=== PATIENT | female | born 1990 | race Caucasian/White ===

== ENCOUNTER 2019-03-06 12:45 | Emergency (ER) | payer OTHER ==
[2019-03-06] MEDS ORDERED: SODIUM CHLORIDE 0.9% 500 ML 500 ML IV ONE (13:25)
--- NOTE | 2019-03-06 13:44 | ED ---
Female Urogenital HPI - General Chief complaint: Vaginal Bleeding Stated complaint: 12 weeks and spotting Time Seen by Provider: 03/06/19 13:24 Source: patient Mode of arrival: ambulatory Limitations: no limitations - History of Present Illness Initial comments: A2 female with last menstrual period November 2018 presented today for chief complaint of positive test abdominal cramping and vaginal bleeding x 2 hours. Patient states she is appointment scheduled with Dr. Paieg on 03/21/2019. Patient states that today she experienced lower abdominal cramping feeling like a light period. She states she has had mild vaginal bleeding. She has any radiation of the pain, severe abdominal pain nausea vomiting diarrhea fever chills or night sweats. Patient was concerned she was miscarrying present to the emergency department for evaluation. Patient does have history of previous right-sided oophrectomy due to ovarian torsion. Patient denies the symptoms being similar. Remaining review of system negative. Upon arrival patient appears well no signs of acute distress. Last Menstrual Period: 12/10/18 - Related Data Home Medications Medication Instructions Recorded Confirmed Acetaminophen Tab [Tylenol Tab] 325 mg PO Q4H PRN 03/06/19 03/06/19 Hcc-Atxc-Nalmy Acid 1 cap PO DAILY 03/06/19 03/06/19 [-U Capsule (formulary)] Allergies Allergy/AdvReac Type Severity Reaction Status Date / Time amoxicillin Allergy Rash/Hives Verified 03/06/19 13:57 cefaclor [From Ceclor] Allergy Rash/Hives Verified 03/06/19 13:57 Review of Systems ROS Statement: Those systems with pertinent positive or pertinent negative responses have been documented in the HPI. ROS Other: All systems not noted in ROS Statement are negative. Past Medical History Past Medical History: No Reported History Additional Past Medical History / Comment(s): ovarian cysts, miscarriage x 2 History of Any Multi-Drug Resistant Organisms: None Reported Past Surgical History: Section Past Psychological History: No Psychological Hx Reported Smoking Status: Never smoker Past Alcohol Use History: None Reported Past Drug Use History: None Reported General Exam - General Exam Comments Initial Comments: General: The patient is awake and alert, in no distress, and does not appear acutely ill. Eye: +3 mm pupils are equal, round and reactive to light, extra-ocular movements are intact. No nystagmus. There is normal conjunctiva bilaterally. No signs of icterus. Ears, nose, mouth and throat: There are moist mucous membranes and no oral lesions. Neck: The neck is supple, there is no tenderness or JVD. Cardiovascular: There is a regular rate and rhythm. No murmur, rub or gallop is appreciated. Respiratory: Lungs are clear to auscultation, respirations are non-labored, breath sounds are equal. No wheezes, stridor, rales, or rhonchi. Gastrointestinal: Soft, non-distended, non-tender abdomen without masses or organomegaly noted. There is no rebound or guarding present. Pelvic Exam: No external lesions. Vaginal mucosa elevated pink. Small amount of blood in vaginal vault no discharge. No adnexal or cervical motion tenderness. Musculoskeletal: Normal ROM, no tenderness. Strength 5/5. Sensation intact. Radial pulses equal bilaterally 2+. Neurological: A&O x 3. CN II-XII intact, There are no obvious motor or sensory deficits. Coordination appears grossly intact. Speech is normal. Skin: Skin is warm and dry and no rashes or lesions are noted. Psychiatric: Cooperative, appropriate mood & affect, normal judgment. Limitations: no limitations Course Vital Signs 03/06/19 03/06/19 13:14 15:54 Temperature 98.5 F 98 F Pulse Rate 91 Pulse Rate [ 87 Pulse Oximetery ] Respiratory 16 18 Rate Blood Pressure 126/81 Blood Pressure 121/86 [Left Arm] O2 Sat by Pulse 99 98 Oximetry Medical Decision Making - Medical Decision Making Well-appearing 28-year-old female 12 weeks presenting for vaginal bleeding. Mild cramping. Ultrasound revealed a viable 12 week 6 day with HR within acceptable limit. + blood type. No rhogam indicated. HgB and VS stable. Patient appears well. Pelvic exam revealed small amount of blood otherwise unremarkable. After discussing case with him provider Dr. Soria. The patient is stable for discharge, with outpatient f/u. Return parameters as well as importance of follow-up are discussed at length the patient who verbalizes understanding. Patient has scheduled appointment with Dr. Paige 03/21/19. - Lab Data Result diagrams: 03/06/19 14:12 03/06/19 14:38 Lab Results 03/06/19 03/06/19 03/06/19 Range/Units 14:12 14:12 14:12 WBC 6.7 (3.8-10.6) k/uL RBC 4.11 (3.80-5.40) m/uL Hgb 12.5 (11.4-16.0) gm/dL Hct 36.3 (34.0-46.0) % MCV 88.3 (80.0-100.0) fL MCH 30.5 (25.0-35.0) pg MCHC 34.5 (31.0-37.0) g/dL RDW 13.1 (11.5-15.5) % Plt Count 221 (150-450) k/uL Neutrophils % 78 % Lymphocytes % 15 % Monocytes % 4 % Eosinophils % 1 % Basophils % 0 % Neutrophils # 5.3 (1.3-7.7) k/uL Lymphocytes # 1.0 (1.0-4.8) k/uL Monocytes # 0.3 (0-1.0) k/uL Eosinophils # 0.1 (0-0.7) k/uL Basophils # 0.0 (0-0.2) k/uL Sodium (137-145) mmol/L Potassium (3.5-5.1) mmol/L Chloride (98-107) mmol/L Carbon Dioxide (22-30) mmol/L Anion Gap mmol/L BUN (7-17) mg/dL Creatinine (0.52-1.04) mg/dL Est GFR (CKD-EPI)AfAm (>60 ml/min/1.73 sqM) Est GFR (CKD-EPI)NonAf (>60 ml/min/1.73 sqM) Glucose (74-99) mg/dL Calcium (8.4-10.2) mg/dL Total Bilirubin (0.2-1.3) mg/dL AST (14-36) U/L ALT (9-52) U/L Alkaline Phosphatase (38-126) U/L Total Protein (6.3-8.2) g/dL Albumin (3.5-5.0) g/dL Urine Color Colorless Urine Appearance Clear (Clear) Urine pH 6.5 (5.0-8.0) Ur Specific [place] 1.001 (1.001-1.035) Urine Protein Negative (Negative) Urine Glucose (UA) Negative (Negative) Urine Ketones Negative (Negative) Urine Blood Moderate H (Negative) Urine Nitrite Negative (Negative) Urine Bilirubin Negative (Negative) Urine Urobilinogen <2.0 (<2.0) mg/dL Ur Leukocyte Esterase Negative (Negative) Urine WBC 1 (0-5) /hpf Ur Squamous Epith Cells 1 (0-4) /hpf Urine HCG, Qual Detected (Not Detectd) Blood Type Blood Type Recheck 03/06/19 03/06/19 Range/Units 14:38 14:38 WBC (3.8-10.6) k/uL RBC (3.80-5.40) m/uL Hgb (11.4-16.0) gm/dL Hct (34.0-46.0) % MCV (80.0-100.0) fL MCH (25.0-35.0) pg MCHC (31.0-37.0) g/dL RDW (11.5-15.5) % Plt Count (150-450) k/uL Neutrophils % % Lymphocytes % % Monocytes % % Eosinophils % % Basophils % % Neutrophils # (1.3-7.7) k/uL Lymphocytes # (1.0-4.8) k/uL Monocytes # (0-1.0) k/uL Eosinophils # (0-0.7) k/uL Basophils # (0-0.2) k/uL Sodium 137 (137-145) mmol/L Potassium 3.6 (3.5-5.1) mmol/L Chloride 110 H (98-107) mmol/L Carbon Dioxide 20 L (22-30) mmol/L Anion Gap 7 mmol/L BUN 5 L (7-17) mg/dL Creatinine 0.46 L (0.52-1.04) mg/dL Est GFR (CKD-EPI)AfAm >90 (>60 ml/min/1.73 sqM) Est GFR (CKD-EPI)NonAf >90 (>60 ml/min/1.73 sqM) Glucose 81 (74-99) mg/dL Calcium 8.7 (8.4-10.2) mg/dL Total Bilirubin 0.3 (0.2-1.3) mg/dL AST 15 (14-36) U/L ALT 21 (9-52) U/L Alkaline Phosphatase 48 (38-126) U/L Total Protein 6.5 (6.3-8.2) g/dL Albumin 3.5 (3.5-5.0) g/dL Urine Color Urine Appearance (Clear) Urine pH (5.0-8.0) Ur Specific [place] (1.001-1.035) Urine Protein (Negative) Urine Glucose (UA) (Negative) Urine Ketones (Negative) Urine Blood (Negative) Urine Nitrite (Negative) Urine Bilirubin (Negative) Urine Urobilinogen (<2.0) mg/dL Ur Leukocyte Esterase (Negative) Urine WBC (0-5) /hpf Ur Squamous Epith Cells (0-4) /hpf Urine HCG, Qual (Not Detectd) Blood Type A Positive Blood Type Recheck ABR ONLY Disposition Clinical Impression: Vaginal bleeding before 22 weeks gestation Disposition: HOME SELF-CARE Condition: Good Instructions (If sedation given, give patient instructions): Threatened Miscarriage (ED) Additional Instructions: Please use medication as discussed. Please follow-up with [facility] as discussed.. Please return to emergency room if the symptoms increase or worsen or for any other concerns. Is patient prescribed a controlled substance at d/c from ED?: No Referrals: Nubia Hickey MD [Primary Care Provider] - 1-2 days Shelby Paige DO [Doctor of Osteopathic Medicine] - 1-2 days Time of Disposition: 16:01
[2019-03-06 14:36] LABS: Basophils % (A) 0 %; Eosinophils # (A) 0.1 k/uL (0-0.7); Eosinophils % (A) 1 %; HCT 36.3 % (34.0-46.0); HGB 12.5 gm/dL (11.4-16.0); Lymphocytes % (A) 15 %; MCH 30.5 pg (25.0-35.0); MCHC 34.5 g/dL (31.0-37.0); MCV 88.3 fL (80.0-100.0); Mean Platelet Volume 8.6; Monocytes # (A) 0.3 k/uL (0-1.0); Monocytes % (A) 4 %; Neutrophils # (A) 5.3 k/uL (1.3-7.7); Neutrophils % (A) 78 %; Platelet Count 221 k/uL (150-450); RBC 4.11 m/uL (3.80-5.40); RDW 13.1 % (11.5-15.5); WBC 6.7 k/uL (3.8-10.6)
[2019-03-06 14:37] LABS: Appearance,Urine Clear (Clear); Bilirubin,Urine Negative (Negative); Blood,Urine Moderate (Negative); Color,Urine Colorless; Glucose,Urine (UA) Negative (Negative); Ketones,Urine Negative (Negative); Leukocyte Esterase,Urine Negative (Negative); Nitrite,Urine Negative (Negative); PH, Urine 6.5 (5.0-8.0); Protein,Urine Negative (Negative); Specific Gravity,Urine 1.001 (1.001-1.035); Squamous Epithelial Cell,Urine 1 /hpf (0-4); Urobilinogen,Urine <2.0 mg/dL (<2.0)
[2019-03-06 15:08] LABS: ALT 21 U/L (9-52); AST 15 U/L (14-36); Albumin 3.5 g/dL (3.5-5.0); Alkaline Phosphatase 48 U/L (38-126); Anion Gap 7 mmol/L; Blood Urea Nitrogen 5 mg/dL (7-17); Calcium 8.7 mg/dL (8.4-10.2); Carbon Dioxide 20 mmol/L (22-30); Chloride 110 mmol/L (98-107); Glucose 81 mg/dL (74-99); Potassium 3.6 mmol/L (3.5-5.1); Sodium 137 mmol/L (137-145); Total Bilirubin 0.3 mg/dL (0.2-1.3); Total Protein 6.5 g/dL (6.3-8.2)
--- NOTE | 2019-03-06 15:39 | US ---
EXAMINATION TYPE: Transabdominal DATE OF EXAM: 03/06/2019 2:10 PM COMPARISON: NONE CLINICAL HISTORY: pain. Cramping, spotting, right ovary removed due to ovarian cyst, no previous ultr asound with this EXAM PERFORMED: Transabdominal (TA) EXAM MEASUREMENTS: GESTATIONAL AGE / DATING Dates by LMP: (12 weeks/2 days) EDC: 09/16/2019 Dates by Current Scan for: (12 weeks/6 days) EDC: 09/12/2019 MATERNAL ANATOMY Uterus: 11.3 x 9.2 x 8.5 cm Right Ovary: Surgically removed per patient Left Ovary: 3.6 x 2.0 x 1.4 cm Post CDS / Adnexa: no free fluid Presence of free fluid: no Presence of corpus luteal cyst: left ovarian lesion with peripheral vascular flow - 1.4 x 1.4 x 1.2 c m Presence of subchorionic bleed: no GESTATION / SURVEY CRL: (12 weeks/6 days) MSD: seen not measured Yolk Sac (normal less than 6mm): not visualized Heart Rate: 168 bpm Rhythm: Normal IUP: Viable IUP Date of LMP: 12/10/2018, Beta HcG (if available): Not available at this time Single live IUP measuring 12 weeks 6 days IMPRESSION: Findings compatible with a viable 12 week 6 day with a heart rate 168 bpm. Left ovarian les ion too small to characterize with peripheral flow may be related to corpus luteal cyst. Follow-up ex am could be obtained in a short-term basis as warranted.
[2019-03-06 15:55] VITALS: BP 121/86; PULSE 87; RESP 18; TEMP 98
== END 2019-03-06 16:23 | disposition home or self-care (01) ==
LOC: EC 12:45
DX: O20.9 Hemorrhage in early pregnancy, unspecified (principal); Z3A.12 12 weeks gestation of pregnancy; Z88.0 Allergy status to penicillin; Z88.1 Allergy status to other antibiotic agents
CPT/HCPCS: 36415; 76801; 80053; 81001; 81025; 84702; 85025; 86900; 86901; 96360; 99284

== ENCOUNTER 2020-09-07 23:05 | Outpatient (CLI) | payer OTHER ==
[2020-09-08 01:16] LABS: Amphetamine Screen,Urine Not Detected (NotDetected); Barbiturate Screen,Urine Not Detected (NotDetected); Benzodiazepines Screen,Urine Not Detected (NotDetected); Cocaine Screen,Urine Not Detected (NotDetected); Methadone Screen, Urine Not Detected (NotDetected); Opiate Screen,Urine Not Detected (NotDetected); Oxycodone Screen, Urine Not Detected (NotDetected); Phencyclidine Screen,Urine Not Detected (NotDetected); Tricyclic Antidepressant,Urine Not Detected (NotDetected); Urn Cannabinoid Scrn Not Detected (NotDetected)
[2020-09-08 01:48] VITALS: BP 145/78; PULSE 103; RESP 16; TEMP 96.8
--- NOTE | 2020-09-10 00:47 | P.MSEPDOC ---
Presenting Problems - Arrival Data Date of Arrival on Unit: 09/07/20 Time of Arrival on Unit: 23:05 Mode of Transport: Ambulatory - Complaint OB-Reason for Admission/Chief Complaint: Possible Onset of Labor, Rule Out SROM Comment: Patient presents with possible rupture of membranes around 2000 states she is [place] approximately every 5 minutes Medical History - Information : 5 Para: 2 Term: 1 : 1 Abortions: Spontaneous or Elective: 2 Number of Living Children: 2 - Gestational Age Gestational Age by JEMMA (wks/days): 38 Weeks and 5 Days - History Complications: Prior , Prior Review of Systems - Review of Systems Constitutional: No problems Breast: No problems ENT: No problems Cardiovascular: No problems Respiratory: No problems Gastrointestinal: No problems Genitourinary: No problems Musculoskeletal: No problems Neurological: No problems Skin: No problems Vital Signs - Temperature Temperature: 96.8 F Temperature Source: Temporal Artery Scan - Pulse Pulse Oximetery Pulse Rate: 103 Pulse Assessment Method: Pulse Oximetry - Respirations Respiratory Rate: 16 Oxygen Delivery Method: Room Air - Blood Pressure Sitting Blood Pressure: 145/78 Blood Pressure Mean: 100 Blood Pressure Source: Automatic Cuff Medical Screen Scoring (Pre) - Cervical Exam Dilation: 1-3 cm = 1 Membranes: Intact - Uterine Contractions Frequency: > 5 minutes apart = 1 Duration: > 40 seconds = 2 Intensity: N/A - Maternal Vital Signs Maternal Temperature: N/A Maternal Blood Pressure: N/A Signs of Preeclampsia: N/A Maternal Respirations: N/A - Maternal Trauma Maternal Trauma: N/A - Assessment - Baby A Baseline FHR: 130 Heart Rate - NICHD Category: Category I (Normal) = 0 NST: Reactive Position: N/A Station: N/A - Total Score - Baby A Total Score - Baby A: 4 - Total Score - Baby B Total Score - Baby B: 4 - Total Score - Baby C Total Score - Baby C: 4 - Level of Risk - Baby A Level of Risk - Baby A: Low (0-5) - Level of Risk - Baby B Level of Risk - Baby B: Low (0-5) - Level of Risk - Baby C Level of Risk - Baby C: Low (0-5) Physician Notification (Pre) - Physician Notified Physician Notified Date: 09/08/20 Physician Notified Time: 00:35 New Order Received: Yes - Notification Comment Comment: Repeat blood pressures x2 20 minutes apart, continue to evaluate for another 40 minutes and collect and send UDS. 0120: Orders given to discharge patient home with instructions. Disposition - Disposition OB Disposition: Discharge to home, Written follow up instructions reviewed Discharge Date: 09/08/20 Discharge Time: 01:30 I agree with the RN Medical Screening Exam: Yes Risk & Benefit of care provided described in d/c instruction: Yes Diagnosis: FALSE LABOR BEFORE 37 COMPLETED WEEKS OF GEST, THIRD TRI
== END 2020-09-08 01:30 | disposition home or self-care (01) ==
LOC: FBPOP 23:05
PROVIDERS: ATTEND Obstetrics & Gynecology
DX: O47.03 False labor before 37 completed weeks of gestation, third trimester (principal); Z3A.38 38 weeks gestation of pregnancy
CPT/HCPCS: 59025; 84112; 80306; G0463; 99213

== ENCOUNTER 2020-09-21 21:35 | Outpatient (CLI) | payer OTHER ==
--- NOTE | 2020-09-21 23:37 | P.OBCN ---
History of Present Illness Consult date: 09/21/20 Reason for consult: other History of present illness: 's is a 29-year-old 3 para 2001 woman with an estimated due date of 09/17/2022 presents to labor and delivery triage complaining of possible rupture of membranes. She believes she may have had a gush of fluid sometime this evening. She has had intermittent care during the . Care was established at approximate 23 weeks. She was seen for several visits with [facility] and her last visit was at approximately 37 weeks. She was not returning to that facility for delivery and plans on delivering here but has not yet established care. Was told at 37 weeks she had elevated blood pressures at her appointment and she was recommended to go to the hospital for further evaluation preeclampsia. Patient disagreed with this plan and decided not to return. She states she has been seeing her primary care doctor in the [place] every week and her blood pressures have been "normal". Her obstetric history is significant for primary low transverse section in 2012 for consultations of an ovarian cyst in the third trimester. She then had a vaginal after section of a 9 lbs. 13 oz. infant in 2014. She reports this has been uncomplicated. She has an estimated due date of 09/17/2020 based on a 23 week ultrasound. Review of records show ultrasound on 08/11/2020 which shows an estimated weight in the 56th percentile. And normal amniotic fluid volume. There is the placenta is posterior. There is also negative group B strep cultures dated 08/27/2020. Blood type is A+. She reports intermittent contractions that are mild. She denies vaginal bleeding and did have some leakage of fluid. She denies headaches, visual changes, nausea, vomiting, fevers, chills, shortness of breath, cough or chest pain. She has had good movement today. On initial evaluation the amnio sure test is negative and she is 5 cm dilated, 50% effaced, vertex -2 station, very posterior. 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 The patient has category 1 heart tones on external monitoring. She has contractions approximately every 10 minutes with a mild irritable pattern after cervical exam. The patient reports that she is quite comfortable and denies painful contractions. I do remy discussion with the patient and her regarding her situation. She is recommended to follow-up in our office tomorrow so that we can discuss a postdates plan going forward. At this time she is not in active labor and we discussed the risks and benefits of induction of labor post dates with her history. She did have a successful vaginal after section which makes trial of labor and vaginal delivery very likely to be successful again. There is risk of uterine rupture with significant consequences for both maternal and well-being and she and her report they're aware of potential risks. At this time they do desire discharge home as she is not in active labor and I reviewed with them the importance of close follow-up in our office tomorrow so we can come up with a plan. Labor signs and symptoms reviewed in detail and the patient is instructed to return to labor and delivery with any heavy vaginal bleeding, severe abdominal pain, leakage of fluids, decreased movement, regular painful contractions, headaches or visual changes. I do believe she and her understand my concerns and show willingness to follow-up. Review of Systems All systems: negative Past Medical History Past Medical History: No Reported History Additional Past Medical History / Comment(s): ovarian cysts, miscarriage x 2 History of Any Multi-Drug Resistant Organisms: None Reported Past Surgical History: Section (2012) Smoking Status: Never smoker Medications and Allergies Home Medications Medication Instructions Recorded Confirmed Type Ylu-Arnu-Boyan Acid 1 cap PO DAILY 03/06/19 09/21/20 History [-U Capsule (formulary)] Famotidine [Pepcid] 40 mg PO DAILY 09/07/20 09/21/20 History Calcium Carbonate [Tums] 2 tab PO DAILY PRN 09/21/20 09/21/20 History Allergies Allergy/AdvReac Type Severity Reaction Status Date / Time amoxicillin Allergy Rash/Hives Verified 09/21/20 21:42 cefaclor [From Ceclor] Allergy Rash/Hives Verified 09/21/20 21:42 Exam Intake and Output 09/21/20 09/21/20 09/22/20 14:59 22:59 06:59 Other: Weight 91.172 kg Is a pleasant, comfortable female who is visibly gravid. HEENT exam is unremarkable. Her breathing is unlabored and her heart is of regular rate and rhythm. The abdomen is gravid soft and nontender. Sizer consistent with dating and by Noe's I would say estimated weight is approximately 7-1/2-8 pounds. She has trace lower extremity edema. On pelvic examination she is 5 cm dilated but very posterior thick and high. Vertex is not well applied. Bulging membranes are palpated. heart tones are category 1 by external monitoring. She's graphing contractions approximately every 10-12 minutes but does have an irritable pattern after her cervical exam. Examination was repeated after 45 minutes and remains unchanged. This is also unchanged from initial evaluation by the labor and delivery triage nurse. Assessment and Plan (1) History of Current Visit: Yes Status: Acute Code(s): Z98.891 - HISTORY OF UTERINE SCAR FROM PREVIOUS SURGERY SNOMED Code(s): 320627456 (2) False labor Current Visit: Yes Status: Acute Code(s): O47.9 - FALSE LABOR, UNSPECIFIED SNOMED Code(s): 486041909 (3) Limited care Current Visit: Yes Status: Acute Code(s): O09.30 - SUPRVSN OF PREG W INSUFFICIENT ANTENAT CARE, UNSP TRIMESTER SNOMED Code(s): 049519077 Plan: See above HPI for plan and disposition. Time with Patient: Greater than 30
[2020-09-21 23:52] VITALS: BP 146/94; PULSE 98; RESP 16; TEMP 96.6
== END 2020-09-21 23:30 | disposition home or self-care (01) ==
LOC: FBPOP 21:35
PROVIDERS: ATTEND Obstetrics & Gynecology
DX: O47.9 False labor, unspecified (principal); O09.30 Supervision of pregnancy with insufficient antenatal care, unspecified trimester; Z98.891 History of uterine scar from previous surgery; Z88.2 Allergy status to sulfonamides; Z88.8 Allergy status to other drugs, medicaments and biological substances; Z79.899 Other long term (current) drug therapy; Z3A.00 Weeks of gestation of pregnancy not specified
CPT/HCPCS: 59025; 84112; G0463; 99213

== ENCOUNTER 2020-09-25 06:15 | Inpatient (IN) | payer OTHER ==
[2020-09-25] MEDS ORDERED: TERBUTALINE 1 MG/ML VIAL SQ PRN (06:54)
[2020-09-25] MEDS ORDERED: LIDOCAINE 0.5% (PF) 5 MG/ML (50 ML SDV) SQ PRN (06:54)
[2020-09-25] MEDS ORDERED: CARBOPROST TROMETHAMINE 250 MCG/ML 1 ML AMP IM PRN (06:54)
[2020-09-25] MEDS ORDERED: OXYTOCIN 10 UNIT/ML 1 ML VIAL IM PRN (06:54)
[2020-09-25] MEDS ORDERED: METHYLERGONOVINE 0.2 MG/ML 1 ML AMP IM PRN (06:54)
[2020-09-25] MEDS ORDERED: OXYTOCIN 30 UNITS/500 ML NS 30 UNIT in SALINE 1 500ML.BAG IV SCH (07:00)
[2020-09-25] MEDS: LACTATED RINGERS 1,000 ML IV SCH ×2 (07:01→10:10)
[2020-09-25 07:58] LABS: Basophils % (A) 0 %; Eosinophils % (A) 0 %; HCT 34.3 % (34.0-46.0); HGB 10.6 gm/dL (11.4-16.0); Hypochromasia Moderate; Lymphocytes # (A) 1.7 k/uL (1.0-4.8); Lymphocytes % (A) 18 %; MCH 26.7 pg (25.0-35.0); MCV 86.1 fL (80.0-100.0); Mean Platelet Volume 9.7; Monocytes # (A) 0.5 k/uL (0-1.0); Monocytes % (A) 6 %; Neutrophils # (A) 6.8 k/uL (1.3-7.7); Neutrophils % (A) 73 %; Platelet Count 189 k/uL (150-450); RBC 3.98 m/uL (3.80-5.40); RDW 15.6 % (11.5-15.5); WBC 9.3 k/uL (3.8-10.6)
[2020-09-25] MEDS ORDERED: BUTORPHANOL 1 MG/ML 1 ML VIAL IV PRN (08:53)
--- NOTE | 2020-09-25 09:00 | P.HPOB ---
History of Present Illness H&P Date: 09/25/20 Chief Complaint: 41 and one sevenths weeks, induction of labor The patient is a 29-year-old 5 para 2021 admitted at 41 and one sevenths weeks as established by 23 week ultrasound. She is admitted for postdates induction of labor. She has only recently presented to our office for care as she had care somewhere else in the care of a supervisor area and was ultimately discharged from that practice for uncertain reasons. As result, she had no care for the late term portion of her and initially presented to our triage without any local doctor. She was brought into her practice where she had a first visit several days ago and, given her postdates status, was counseled and scheduled for induction. testing was reassuring with reactive nonstress tests as well as adequate amniotic fluid index. Her is otherwise apparently been uncomplicated. She does carry a history of a previous section with a successful vaginal after section following that. She has requested vaginal trial of labor. She does also have advanced cervical dilation with her cervix being dilated approximate 5 cm. Obstetrical history: 5 para 2021 with an initial section followed by a successful vaginal after section of a 9-1/2 pound baby. Current statistics are listed in history of present illness. EDC of 09/17/2020 was established by a 23 week ultrasound. Laboratory workup demonstrated to blood type of A+ with a negative antibody screen. Rubella status is immune. Remainder of the laboratory workup was within normal limits. One hour Glucola was within normal limits and group B strep status is negative. Gynecologic history: Unremarkable with no history of any infections to include STDs. Review of Systems Review of systems is confined to history of present illness. Past Medical History Past Medical History: No Reported History Additional Past Medical History / Comment(s): ovarian cysts, miscarriage x 2 History of Any Multi-Drug Resistant Organisms: None Reported Past Surgical History: Section Additional Past Surgical History / Comment(s): tubes in ears, right ovary and fallopian tube removeal with section Past Anesthesia/Blood Transfusion Reactions: No Reported Reaction Past Psychological History: No Psychological Hx Reported Additional Psychological History / Comment(s): ppd with both pregnancies Smoking Status: Never smoker Past Alcohol Use History: None Reported Past Drug Use History: None Reported - Past Family History Mother Family Medical History: Hypertension Additional Family Medical History / Comment(s): WPW, grandmother- cancer Medications and Allergies Home Medications Medication Instructions Recorded Confirmed Type Pjq-Hgmf-Vfdmr Acid 1 cap PO DAILY 03/06/19 09/25/20 History [-U Capsule (formulary)] Famotidine [Pepcid] 40 mg PO DAILY 09/07/20 09/25/20 History Calcium Carbonate [Tums] 2 tab PO DAILY PRN 09/21/20 09/25/20 History Allergies Allergy/AdvReac Type Severity Reaction Status Date / Time amoxicillin Allergy Rash/Hives Verified 09/21/20 21:42 cefaclor [From Ceclor] Allergy Rash/Hives Verified 09/21/20 21:42 Exam Vital Signs Temp Pulse Resp BP 09/25/20 06:52 96.5 F L 89 18 121/86 Intake and Output 09/24/20 09/25/20 09/25/20 22:59 06:59 14:59 Other: Weight 92.533 kg In general, this is a well-developed, well-nourished white female in no acute distress. Her heart has a regular rhythm and rate without murmur. Her lungs are clear to auscultation bilaterally in all [place]. Her abdomen is gravid, nondistended, has normal active bowel sounds, soft, nontender, and without any palpable masses aside from uterine fundus. Her extremities are without any cyanosis, clubbing, or edema and are nontender to palpation bilaterally. Digital cervical examination on straights her prescription length 57 m dilated, 50-60% effaced, the vertex in presentation at -2 station. Artificial rupture of membranes is carried out demonstrating clear fluid. Results Result Diagrams: 09/25/20 07:00 Abnormal Lab Results - Last 24 Hours (Table) 09/25/20 Range/Units 07:00 Hgb 10.6 L (11.4-16.0) gm/dL RDW 15.6 H (11.5-15.5) % Assessment and Plan (1) Post-dates Current Visit: Yes Status: Acute Code(s): O48.0 - POST-TERM SNOMED Code(s): 48508219 (2) History of Current Visit: Yes Status: Acute Code(s): Z98.891 - HISTORY OF UTERINE SCAR FROM PREVIOUS SURGERY SNOMED Code(s): 130836657 Plan: The patient is admitted for postdates induction of labor with all signs reassuring. She does carry a history of previous section with successful vaginal after section and request vaginal trial of labor understanding the potential risks and complications. Pitocin augmentation has been started and artificial rupture of membranes carried out. She will have close maternal and surveillance and expectant management will be practiced. She is a good candidate for either IV or epidural analgesia, whichever she may choose.
[2020-09-25] MEDS ORDERED: SODIUM CHLORIDE 0.9% 100 ML BAG ONE (10:01)
[2020-09-25] MEDS ORDERED: ROPIVACAINE 5MG/ML 20ML VIAL ONE (10:01)
[2020-09-25] MEDS ORDERED: fentaNYL (PF) 50 MCG/ML 5 ML AMP ONE (10:01)
[2020-09-25] MEDS ORDERED: HYDROCORTISONE 2.5% RECTAL CREAM 30 GM TUBE RECTAL PRN (12:11)
[2020-09-25] MEDS ORDERED: diphenhydrAMINE 25 MG CAP PO PRN (12:11)
[2020-09-25] MEDS ORDERED: ZOLPIDEM 5 MG TAB PO PRN (12:11)
[2020-09-25] MEDS ORDERED: SIMETHICONE 80 MG CHEWABLE PO PRN (12:11)
[2020-09-25] MEDS ORDERED: diphenhydrAMINE 50 MG CAP PO PRN (12:11)
[2020-09-25] MEDS ORDERED: HYDROcodone/APAP 7.5-325MG 1 EACH TAB PO PRN (12:11)
[2020-09-25] MEDS ORDERED: BENZOCAINE/MENTHOL SPRAY 1 GM/SPRAY AEROSOL TOPICAL PRN (12:11)
[2020-09-25] MEDS ORDERED: HYDROcodone/APAP 5-325MG 1 EACH TAB PO PRN (12:11)
[2020-09-25] MEDS ORDERED: diphenhydrAMINE 50 MG/ML 1 ML VIAL IVP PRN ×2 (12:11)
[2020-09-25] MEDS ORDERED: LANOLIN CREAM 5 GM TUBE TOPICAL PRN (12:11)
[2020-09-25] MEDS ORDERED: OXYTOCIN 20 UNITS/1000 ML NS 1,000 ML IV SCH (12:15)
--- NOTE | 2020-09-25 12:15 | P.PROBDLV ---
Vaginal Delivery Note - . Vaginal Delivery Note: The patient is a 29-year-old 5 para 2021 admitted at 41 and one sevenths weeks by average dating parameters. She is admitted for postdates induction with a very favorable cervix. She does carry a history of a previous section with successful 1 and requested trial of labor. She did have care at another facility and, for reasons that are unclear, had no further care with them at 37 weeks, perhaps a difference of opinion. As result, she was seen in labor and delivery triage here at which time she was brought to our practice for further care and disposition of this given her postdates nature. Discussion was had and she agreed to undergo induction of labor. She was admitted with all signs reassuring and had Pitocin augmentation started followed by artificial rupture of membranes demonstrating clear fluid. She later had an epidural catheter placed for analgesia and progressed rapidly through the active phase of labor to complete and then pushed over the course of approximately 1 contraction to a normal spontaneous vaginal delivery of a viable 9 lbs. 10 oz. baby girl with Apgars of 9 at 1 minute and 9 at 5 minutes delivered in the right occiput anterior position. The placenta was delivered spontaneously, intact, and grossly normal with a grossly normal, centrally inserted three-vessel cord. There was a small second-degree midline laceration which was noted over the site of a previous l aceration repaired in standard fashion using 3-0 chromic catgut without difficulty. Estimated blood loss for the case is approximately 200 mL. There were no complications. All sponge, instrument, and needle counts were correct. Both mother and are resting comfortably in recovery.
[2020-09-25] MEDS: IBUPROFEN 600 MG TAB PO PRN ×2 (17:36→23:54)
[2020-09-25] MEDS: SENNOSIDES-DOCUSATE SODIUM 1 EACH TAB PO SCH (20:07)
[2020-09-25] MEDS: FAMOTIDINE 20 MG TAB PO SCH (20:08)
[2020-09-25] MEDS: ACETAMINOPHEN TAB 325 MG TAB PO PRN (20:20)
[2020-09-26] MEDS: ACETAMINOPHEN TAB 325 MG TAB PO PRN ×2 (02:18→09:28)
[2020-09-26] MEDS: IBUPROFEN 600 MG TAB PO PRN (06:22)
[2020-09-26 07:00] LABS: Basophils # (A) 0.1 k/uL (0-0.2); Basophils % (A) 1 %; Eosinophils # (A) 0.1 k/uL (0-0.7); Eosinophils % (A) 1 %; HCT 30.2 % (34.0-46.0); HGB 9.3 gm/dL (11.4-16.0); Hypochromasia Moderate; Lymphocytes # (A) 2.1 k/uL (1.0-4.8); Lymphocytes % (A) 24 %; MCH 26.9 pg (25.0-35.0); MCHC 30.9 g/dL (31.0-37.0); MCV 86.9 fL (80.0-100.0); Mean Platelet Volume 9.9; Monocytes # (A) 0.5 k/uL (0-1.0); Monocytes % (A) 6 %; Neutrophils # (A) 5.9 k/uL (1.3-7.7); Neutrophils % (A) 67 %; Platelet Count 170 k/uL (150-450); RBC 3.47 m/uL (3.80-5.40); RDW 15.4 % (11.5-15.5); WBC 8.8 k/uL (3.8-10.6)
[2020-09-26] MEDS: SENNOSIDES-DOCUSATE SODIUM 1 EACH TAB PO SCH (09:28)
[2020-09-26 09:47] VITALS: BP 119/73; PULSE 82; RESP 16; TEMP 98
--- NOTE | 2020-09-26 10:42 | P.DS ---
Providers Date of admission: 09/25/20 06:37 Expected date of discharge: 09/26/20 Attending physician: Nj Pop Primary care physician: Stated None - Discharge Diagnosis(es) (1) Post-dates Current Visit: Yes Status: Acute (2) History of Current Visit: Yes Status: Acute (3) Vaginal after section Current Visit: Yes Status: Acute Hospital Course: The patient is a 5 para 2021 admitted at 41 and one sevenths weeks by a 23 week ultrasound. She is admitted for postdates induction of labor. Most of her care was done elsewhere and was terminated at 37 weeks for unclear reasons. She presented to our triage area with no local care and was accepted into our practice and seen 1 time in the office at which time the induction was scheduled. Her is reportedly been uncomplicated and group B strep status is negative. She does carry a history of a previous section with a successful vaginal after section following that, she has requested trial of labor. On labor and delivery, she had Pitocin started followed by artificial rupture of membranes for clear fluid. She later had an epidural catheter placed for analgesia and progressed fairly quickly to complete. She pushed over the course of approximate 1 contraction to a normal spontaneous vaginal delivery of a viable 9 lbs. 10 oz. baby girl with Apgars of 9 at 1 minute and 9 at 5 minutes. Her course was unremarkable with vital signs remaining stable and her temperature was afebrile throughout. She was deemed stable for discharge on post day #1 and discharged home to follow-up in the office in 6 weeks' time routinely. Discharge instructions included calling for any significantly increased bleeding or foul-smelling lochia, significantly fever abdominal pain, perineal complaints, breast complaints, or anything else that concerned her. She is additionally instructed to have nothing in the vagina for at least 6 weeks time to include intercourse. She understood her instructions and agrees to follow up as noted above. Discharge medications included continued vitamins as she has opted to breast-feed. She is somewhat anemic following delivery and was instructed to use iron sulfate 325 mg daily for approximately 1 month. She was otherwise to use [id number] analgesic pain medications. Maternal blood type is A+ and rubella status is immune. Procedures: #1. Pitocin induction #2. Artificial rupture of membranes #3. Epidural analgesia #4. Normal spontaneous vaginal delivery, successful #5. Repair of perineal laceration Patient Condition at Discharge: Stable Plan - Discharge Summary New Discharge Prescriptions: No Action Ubh-[id number]-[id number] Acid [-U Capsule (formulary)] 1 cap PO DAILY Famotidine [Pepcid] 40 mg PO DAILY Calcium Carbonate [Tums] 2 tab PO DAILY PRN PRN Reason: Heartburn Discharge Medication List [id number]-[id number] Acid [-U Capsule (formulary)] 1 cap PO DAILY 03/06/19 [History] Famotidine [Pepcid] 40 mg PO DAILY 09/07/20 [History] Calcium Carbonate [Tums] 2 tab PO DAILY PRN 09/21/20 [History] Follow up Appointment(s)/Referral(s): Nj Pop MD [STAFF PHYSICIAN] - 6 Weeks Discharge Disposition: HOME SELF-CARE
[2020-09-26] MEDS: FAMOTIDINE 20 MG TAB PO SCH (14:40)
== END 2020-09-26 14:15 | disposition home or self-care (01) | DRG 807 ==
LOC: 4FBP 06:37
PROVIDERS: ADMIT Obstetrics & Gynecology; ATTEND Obstetrics & Gynecology
PROC: 3E0R3BZ Introduction of Anesthetic Agent into Spinal Canal, Percutaneous Approach (ICD-10-PCS; principal; 2020-09-25)
PROC: 00HU33Z Insertion of Infusion Device into Spinal Canal, Percutaneous Approach (ICD-10-PCS; principal; 2020-09-25)
PROC: 0KQM0ZZ Repair Perineum Muscle, Open Approach (ICD-10-PCS; principal; 2020-09-25)
PROC: 10907ZC Drainage of Amniotic Fluid, Therapeutic from Products of Conception, Via Natural or Artificial Opening (ICD-10-PCS; principal; 2020-09-25)
PROC: 10E0XZZ Delivery of Products of Conception, External Approach (ICD-10-PCS; principal; 2020-09-25)
PROC: 3E033VJ Introduction of Other Hormone into Peripheral Vein, Percutaneous Approach (ICD-10-PCS; principal; 2020-09-25)
DX: O48.0 Post-term pregnancy (principal); Z37.0 Single live birth; D64.9 Anemia, unspecified; O99.02 Anemia complicating childbirth; O34.211 Maternal care for low transverse scar from previous cesarean delivery; Z3A.41 41 weeks gestation of pregnancy; O70.1 Second degree perineal laceration during delivery; Z79.899 Other long term (current) drug therapy; Z82.49 Family history of ischemic heart disease and other diseases of the circulatory system; Z87.42 Personal history of other diseases of the female genital tract; Z80.9 Family history of malignant neoplasm, unspecified
CPT/HCPCS: 85025; 86850; 86900; 86901